=== PATIENT | male | born 1985 | race Two or more races ===

== ENCOUNTER 2021-06-03 11:10 | Emergency (ER) | payer SELFPAY ==
[~2021-06-03] VITALS: Ht 180.3 cm; Wt 88.5 kg
[2021-06-03] MEDS ORDERED: ONDANSETRON 4 MG/2 ML VIAL IV ONE (11:30)
[2021-06-03] MEDS ORDERED: IV NORMAL SALINE 1000 ML BAG IV ONE (11:30)
[2021-06-03] MEDS ORDERED: KETOROLAC TROMETHAMINE 30 MG INJ IVP ONE (11:30)
[2021-06-03] MEDS ORDERED: ONDANSETRON 4 MG/2 ML VIAL ONE (11:34)
[2021-06-03] MEDS ORDERED: KETOROLAC TROMETHAMINE 30 MG INJ ONE (11:34)
[2021-06-03 11:38] LABS: HEMATOCRIT 47.7 % (36.7-47.1); MEAN CORPUSCULAR HEMOGLOBIN 30.1 uug (23.8-33.4); MEAN CORPUSCULAR VOLUME 87.3 fL (73.0-96.2); PLATELET COUNT (AUTO) 251 K/uL (152-348)
[2021-06-03 11:59] LABS: BILIRUBIN,DIRECT 0.2 mg/dL (0.0-0.2); CREATININE 0.8 mg/dL (0.6-1.3); POTASSIUM 3.1 mmol/L (3.5-5.1); TOTAL PROTEIN, SERUM 7.7 g/dL (6.4-8.2)
[2021-06-03 12:12] LABS: *BILIRUBIN,URIN NEGATIVE (NEGATIVE); *BLOOD, URINE NEGATIVE (NEGATIVE); *CLARITY,URINE CLEAR (CLEAR); *COLOR,URINE YELLOW (YELLOW); *KETONES,URINE NEGATIVE (NEGATIVE); *UROBILINOGEN,URINE 0.2 E.U./dl (NORMAL); LEUKOCYTE ESTERASE ,URINE NEGATIVE (NEGATIVE); NITRITE, URINE NEGATIVE (NEGATIVE); UGLUCOSE NEGATIVE (NEGATIVE)
[2021-06-03] MEDS ORDERED: DIAZEPAM 2 MG TABLET PO ONE (12:15)
[2021-06-03] MEDS ORDERED: DIAZEPAM 5 MG TABLET ONE (12:24)
[2021-06-03] MEDS ORDERED: CYCLOBENZAPRINE HCL 10 MG TABLET PO ONE (13:00)
[2021-06-03] MEDS ORDERED: CYCLOBENZAPRINE HCL 10 MG TABLET ONE (13:42)
[2021-06-03] MEDS ORDERED: CYCL10TA9 PO (14:23)
[2021-06-03] MEDS ORDERED: NAPR-1164 PO (14:23)
[2021-06-03] MEDS ORDERED: HYDROMORPHONE 1 MG/1 ML DISP.SYRIN IV ONE (14:45)
[2021-06-03] MEDS ORDERED: HYDROMORPHONE 1 MG/1 ML DISP.SYRIN ONE (14:48)
== END 2021-06-03 16:20 | disposition home or self-care (01) ==
LOC: ER 11:10
DX: M54.5 Low back pain (principal); K42.9 Umbilical hernia without obstruction or gangrene; R16.0 Hepatomegaly, not elsewhere classified; G89.29 Other chronic pain; S39.92XS Unspecified injury of lower back, sequela; X58.XXXS Exposure to other specified factors, sequela; R94.31 Abnormal electrocardiogram [ECG] [EKG]
CPT/HCPCS: 36415; 72128; 72131; 74176; 80048; 80076; 81003; 83690; 84484; 85025; 93005; 96361; 96374; 96375; 99285; J1170; J1885; J2405; 70030-TC; J7030